=== PATIENT | female | born 1960 | race Caucasian/White ===

== ENCOUNTER 2017-01-20 22:45 | Emergency (ER) | payer OTHER ==
[~2017-01-20 22:45] MED LIST: FUROSEMIDE20 M1 PO; LISINOPRIL20 M1 PO; METOPROLOL SUCC50 M2 PO
--- NOTE | 2017-01-20 23:51 | ED GENERAL ADULT ---
History of Present Illness General Chief Complaint: Fever Stated Complaint: PT UTI Source: patient Exam Limitations: no limitations Vital Signs & Intake/Output Vital Signs & Intake/Output Vital Signs Date Time Temp Pulse Resp B/P B/P Pulse O2 O2 Flow FiO2 Mean Ox Delivery Rate 01/21 0001 8 160/96 01/20 2254 97.8 87 157/100 98 Allergies Coded Allergies: NO KNOWN ALLERGIES (04/28/11) Reconcile Medications Ciprofloxacin HCl (Cipro) 250 MG TABLET 1 TAB PO BID uti Furosemide 20 MG TABLET 1 TAB PO DAILY HTM (Reported) Lisinopril 20 MG TABLET 1 TAB PO DAILY HTN (Reported) Metoprolol Succinate 50 MG TAB.ER.24H 1 TAB PO DAILY HTN (Reported) Phenazopyridine HCl (Pyridium) 100 MG TABLET 1 TAB PO TID PRN dysuria Triage Note: PER PT ? UTI, FREQUENCY AND BURNING SINCE 6PM. Triage Nurses Notes Reviewed? yes Onset: Gradual Duration: hour(s): (6) Timing: remote history Injury Environment: home Severity: moderate Severity Numbers: 7 No Modifying Factors: none HPI: Patient is a 56-year-old female presenting to the emergency department with chief complaint of dysuria urgency and frequency that started about 6 hours prior to arrival. History of UTI and this feels similar. Denies any fevers or chills. No back pain. Denies hematuria. Nothing seems to make it better or worse. Denies abdominal pain. No chest pain palpitations or shortness of breath. No nausea or vomiting. (BRYAN ANGULO) Past History Travel History Traveled to [place] past 21 day No Medical History Any Pertinent Medical History? see below for history Neurological: NONE Cardiovascular: hypertension Respiratory: NONE Gastrointestinal: NONE Hepatic: NONE Renal: NONE Musculoskeletal: NONE Psychiatric: NONE Endocrine: NONE Surgical History Surgical History: non-contributory Psychosocial History What is your primary language Irish Tobacco Use: Never used Family History Hx Contributory? No (BRYAN ANGULO) Review of Systems Review of Systems Constitutional: Reports: no symptoms. Comments Review of systems: See HPI, All other systems negative. Constitutional, no chills fever or weight loss HEENT: No visual changes no sore throat no congestion Cardiovascular: No chest pain ,palpitation Skin, no jaundice no rashes Respiratory: No dyspnea cough sputum or hemoptysis GI: No nausea no vomiting : Positive dysuria and frequency, denies hematuria Muscle skeletal: no back pain, no neck pain, Neurologic: No numbness no zarate Immunology: No splenectomy or history of AIDS (BRYAN ANGULO) Physical Exam Physical Exam General Appearance: well developed/nourished, no apparent distress, alert, awake , comfortable Comments: Well-developed well-nourished person in no acute distress HEENT: Pupils equally round and reactive to light and accommodation. Nose is atraumatic. Neck: Normal inspection Back: Nontender, no CVA tenderness. Cardiovascular: normal JVP Respiratory: No respiratory distress. Extremity: No edema Neuro: Alert oriented x3 Skin: No appreciable rash on exposed skin, skin is warm and dry. Psych: Mood and affect is normal, memory and judgment is normal. Core Measures ACS in differential dx? No CVA/TIA Diagnosis: No Severe Sepsis Present: No Septic Shock Present: No (BRYAN ANGULO) Progress Differential Diagnoses I considered the following diagnoses in my evaluation of the patient: UTI, pyelonephritis, hydronephrosis, ureterolithiasis Plan of Care: Orders Procedure Date/time Status CULTURE,URINE 01/20 2255 Active URINALYSIS 01/20 2255 Complete Laboratory Tests 01/20/178: Urinalysis LIGHT H, Urine Color PINK H, Urine Clarity HAZY H, Urine pH 7.0, Ur Specific [place] 1.015, Urine Protein 100 H, Urine Ketones NEG, Urine Nitrite NEG, Urine Bilirubin NEG, Urine Urobilinogen 0.2, Ur Leukocyte Esterase MOD H, Ur Microscopic SEDIMENT EXAMINED, Urine RBC 10-15 H, Urine WBC 15-25 H , Ur Epithelial Cells RARE, Urine Bacteria FEW H, Urine Hemoglobin LARGE H, Urine Glucose NEG Microbiology 01/21 2308 URINE ROUT: Urine Culture - RECD Initial ED EKG: none Comments: Patient has no CVA tenderness is afebrile, patient has UTI on urinalysis. We'll send off culture. Patient will be treated with Cipro for 5 days twice a day. Also given Pyridium. She'll return for any worsening symptoms or concerns. (BRYAN ANGULO) Departure Departure Time of Disposition: 2350 Disposition: HOME OR SELF CARE Condition: Stable Clinical Impression Primary Impression: Urinary tract infection Qualifiers: Urinary tract infection type: site unspecified Hematuria presence: with hematuria Qualified Codes: N39.0 - Urinary tract infection, site not specified; R31.9 - Hematuria, unspecified Secondary Impressions: Hypertension Qualifiers: Hypertension type: essential hypertension Qualified Code: I10 - Essential (primary) hypertension Referrals: IFEANYI MCCLURE,CLIVE Buenrostro (PCP/Family) Additional Instructions: Follow-up with your primary care physician call to make an appointment. Increase fluids. Take Pyridium as prescribed to help with urinary symptoms. Take antibiotics as prescribed. Return for worsening symptoms or concerns. Departure Forms: Customer Survey General Discharge Information Prescriptions: Current Visit Scripts Phenazopyridine HCl (Pyridium) 1 TAB PO TID PRN dysuria #6 TAB Ciprofloxacin HCl (Cipro) 1 TAB PO BID #10 TAB (BRYAN ANGULO) PA/EVENT SECURITY OFFICER Co-Sign Statement Statement: ED Attending supervision documentation- [] I saw and evaluated the patient. I have also reviewed all the pertinent lab results and diagnostic results. I agree with the findings and the plan of care as documented in the PA's/EVENT SECURITY OFFICER's documentation. [x] I have reviewed the ED Record and agree with the PA's/EVENT SECURITY OFFICER's documentation. [] Additions or exceptions (if any) to the PAs/EVENT SECURITY OFFICER's note and plan are summarized below: [] (PHILLIP MCCLURE,SEYMOUR Milligan) Critical Care Note Critical Care Note Critical Care Time: non-applicable (BRYAN ANGULO)
[2017-01-20] MEDS ORDERED: PYRIDIUM100 M1 PO (23:56)
[2017-01-20] MEDS ORDERED: CIPRO250 M1 PO (23:56)
[2017-01-21 00:01] VITALS: BP 160/96
== END 2017-01-21 00:01 ==
LOC: ERH 22:45
DX: N39.0 Urinary tract infection, site not specified (principal); I10 Essential (primary) hypertension
CPT/HCPCS: 81001; 87086